=== PATIENT | female | born 1980 | race Caucasian/White ===

== ENCOUNTER 2018-11-23 18:33 | Emergency (ER) | payer SELFPAY ==
[~2018-11-23] VITALS: Ht 157.5 cm; Wt 96.8 kg
[2018-11-23 18:51] VITALS: Ht 157.5 cm; Wt 96.8 kg
[2018-11-23] MEDS ORDERED: ZESTRIL10 MG PO (18:56)
[2018-11-23] MEDS ORDERED: GLUCOPHAGE1000 MG PO (18:56)
[2018-11-23] MEDS ORDERED: HYDROCHLOROTHIA50 MG PO (18:56)
[2018-11-23] MEDS ORDERED: BAYER CHEWABLE81 MG PO (18:57)
[2018-11-23] MEDS ORDERED: PENICILLIN V P500 MG PO (20:46)
[2018-11-23] MEDS ORDERED: HYDROCODON-ACE1 EAC2 PO (20:46)
[2018-11-23 21:03] VITALS: BP 128/76
== END 2018-11-23 21:09 | disposition home or self-care (01) ==
LOC: D.ER 18:33
DX: S02.5XXA Fracture of tooth (traumatic), initial encounter for closed fracture (principal); K04.7 Periapical abscess without sinus